=== PATIENT | male | born 1995 | race Caucasian/White ===

== ENCOUNTER 2017-04-01 19:12 | Emergency (ER) | payer BC ==
[~2017-04-01] VITALS: Ht 185.4 cm; Wt 111.0 kg
[2017-04-01 19:38] VITALS: Ht 185.4 cm; Wt 111.0 kg
[2017-04-01] MEDS ORDERED: DOCU-144 PO (20:31)
[2017-04-01] MEDS ORDERED: ACET325T33 PO (20:31)
--- NOTE | 2017-04-01 22:15 | ERD ---
ER Documentation Chief Complaint Date/Time DATE: 04/01/17 TIME: 22:13 Chief Complaint Constipation for 2 weeks HPI 21-year-old male coming in complaining of generalized abdominal pain. Patient states this is been going on for months. He states he has a cramping type sensation and then has a bowel movement which alleviates his symptoms. Patient' s last bowel movement was 1 hour prior to evaluation. Denies chest pain or shortness of breath. Denies fever. Denies vomiting. Has been taking stool softeners which alleviated symptoms. He stopped taking stool softeners and symptoms return. ROS All systems reviewed and are negative except as per history of present illness. Medications Home Meds Active Scripts Acetaminophen* (Tylenol*) 325 Mg Tablet, 2 TAB PO Q8 Y for PAIN AND OR ELEVATED TEMP, #20 TAB Prov:JEROD VILLANUEVA PA-C 04/01/17 Docusate Sodium* (Colace*) 100 Mg Capsule, 100 MG PO TID, #30 CAP Prov:JEROD VILLANUEVA PA-C 04/01/17 Allergies Allergies: Coded Allergies: No Known Allergy (Unverified , 04/01/17) PMhx/Soc History of Surgery: No Anesthesia Reaction: No Hx Neurological Disorder: No Hx Respiratory Disorders: No Hx Cardiac Disorders: No Hx Psychiatric Problems: No Hx Miscellaneous Medical Probl: No Hx Alcohol Use: No Hx Substance Use: No Hx Tobacco Use: No Smoking Status: Never smoker Physical Exam Vitals Vital Signs Date Time Temp Pulse Resp B/P Pulse Ox O2 Delivery O2 Flow Rate FiO2 04/01/17 19:38 98.4 76 20 148/77 98 Physical Exam GENERAL: The patient is well-appearing, well-nourished, in no acute distress CHEST: Clear to auscultation bilaterally. There are no rales, wheezes or rhonchi. HEART: Regular rate and rhythm. No murmurs, clicks, rubs or gallops. No S3 or S4. ABDOMEN:Soft, nontender and nondistended. Good bowel sounds. No rebound or guarding. No gross peritonitis. No gross organomegaly or masses. No Barnard sign or McBurney point tenderness. BACK: No midline or flank tenderness. Procedures/MDM MDM: Patient's abdominal exam was not concerning I have low suspicion for bowel obstruction, diverticulitis, appendicitis, choledocholithiasis, cholecystitis, or cholangitis, I have low suspicion for nephrolithiasis or pancreatitis. Patient's pain is resolved with bowel movements I have suspicion the patient may just have cramping type sensation associated with bowel movements. Patient did receive relief while taking stool softeners. He stopped taking stool softeners and pain return. I recommend patient to continue taking stool softeners to help alleviate symptoms. Patient understood and complied with plan. I do not feel that blood work or imaging is indicated at today's visit. Patient is told if symptoms change or worsen to return to the ER. All questions answered at the time of discharge. Patient is discharged with strict ER precautions Departure Diagnosis: Primary Impression: Abdominal pain Condition: Stable Patient Instructions: Abdominal Pain Referrals: [facility] YOU HAVE RECEIVED A MEDICAL SCREENING EXAM AND THE RESULTS INDICATE THAT YOU DO NOT HAVE A CONDITION THAT REQUIRES URGENT TREATMENT IN THE EMERGENCY DEPARTMENT. FURTHER EVALUATION AND TREATMENT OF YOUR CONDITION CAN WAIT UNTIL YOU ARE SEEN IN YOUR DOCTORS OFFICE WITHIN THE NEXT 1-2 DAYS. IT IS YOUR RESPONSIBILITY TO MAKE AN APPOINTMENT FOR FOLOW-UP CARE. IF YOU HAVE A PRIMARY DOCTOR --you should call your primary doctor and schedule an appointment IF YOU DO NOT HAVE A PRIMARY DOCTOR YOU CAN CALL OUR PHYSICIAN REFERRAL HOTLINE AT IF YOU CAN NOT AFFORD TO SEE A PHYSICIAN YOU CAN CHOSE FROM THE FOLLOWING [facility] CL[facility] [address] [facility]. [facility] [address] [facility] [facility] [address] [facility] [facility] [address] [facility] [address] [facility]. [facility] [address] Additional Instructions: FOLLOW UP WITH YOUR PRIMARY CARE PHYSICIAN TOMORROW.Return to this facility if you are not improving as expected. JEROD VILLANUEVA PA-C Apr 01, 2017 22:15
== END 2017-04-01 21:08 | disposition home or self-care (01) ==
LOC: FTE 19:12
DX: R10.84 Generalized abdominal pain (principal)
CPT/HCPCS: 99283